=== PATIENT | female | born 2005 | race Caucasian/White ===

== ENCOUNTER 2024-05-28 15:02 | Emergency (ER) | payer OTHER ==
[2024-05-28 15:13] VITALS: BMI 31.1
[2024-05-28] MEDS ORDERED: ONDANSETRON *ODT* 4 MG TABLET ONE (15:58)
[2024-05-28] MEDS: ONDANSETRON *ODT* 4 MG TABLET SL ONE (16:47)
[2024-05-28 18:45] LABS: BASO % 0.4 % (0-2.0); EOS % 0.4 % (0-4.5); HEMOGLOBIN 12.5 GM/dL (10.7-15.3); LYMPH % 24.3 % (8-40); MCH 25.6 pg (25.7-33.7); MCHC 32.9 g/dl (32.0-36.0); MEAN CELL VOLUME 77.8 fl (80-96); MEAN PLT VOLUME 7.7 fl (7.5-11.1); MONO % 3.8 % (3.8-10.2); NEUT % 71.1 % (42.8-82.8); PLATELET COUNT 270 10^3/uL (134-434); RBC 4.89 M/mm3 (3.60-5.2); RDW 15.2 % (11.6-15.6); WHITE BLOOD COUNT 8.8 K/mm3 (4.0-10.0)
[2024-05-28 18:58] LABS: POTASSIUM 3.7 mmol/L (3.5-5.1)
[2024-05-28 19:00] LABS: ALBUMIN 4.2 g/dl (3.4-5.0); BLOOD UREA NITROGEN 6.3 mg/dL (7-18); CALCIUM 9.5 mg/dL (8.5-10.1)
[2024-05-28 19:03] LABS: CREATININE 0.6 mg/dL (0.55-1.3)
[2024-05-28 19:05] LABS: BILIRUBIN,TOTAL 0.3 mg/dL (0.2-1); TOT PROT 7.9 g/dl (6.4-8.2)
[2024-05-28 19:42] VITALS: BP 116/67; PULSE 68; RESP 18; TEMP 98.1
[2024-05-28 19:54] LABS: HIV INTERPRETATION NEGATIVE (NEGATIVE)
== END 2024-05-28 19:42 | disposition home or self-care (01) ==
LOC: JER 15:02
DX: R55 Syncope and collapse (principal)
CPT/HCPCS: 36415; 70450-TC; 80053; 84703; 85025; 86803; 87389; 93005; 93010; 99285-25; Q0162